=== PATIENT | male | born 1990 | race African-American/Black ===

== ENCOUNTER 2016-06-28 15:14 | Emergency (ER) | payer OTHER ==
[~2016-06-28] VITALS: Ht 180.3 cm; Wt 105.3 kg
[2016-06-28 17:13] VITALS: BP 133/86
== END 2016-06-28 17:14 ==
LOC: EME 15:14 → EDBD 15:14 → EME 15:14
DX: S01.511A Laceration without foreign body of lip, initial encounter (principal); W51.XXXA Accidental striking against or bumped into by another person, initial encounter; Y93.67 Activity, basketball; Y92.147 Courtyard of prison as the place of occurrence of the external cause; Z23 Encounter for immunization
CPT/HCPCS: 99281; 99284